=== PATIENT | female | born 1955 | race Caucasian/White ===

== ENCOUNTER 2019-03-14 07:56 | Emergency (ER) | payer OTHER, MEDICAID ==
[~2019-03-14] VITALS: Ht 154.9 cm; Wt 75.7 kg
[2019-03-14 08:12] VITALS: BP 154/94
--- NOTE | 2019-03-14 08:40 | NUR ---
64/F TO ED WITH C/O COUGH AND CONGESTION X 3 DAYS. PT REPORTS PAIN IN UPPER BACK UPON COUGHING. LUNG SOUNDS CLEAR BILATERALLY. NO DISTRESS NOTED. IN BED FOR MSE
[2019-03-14 09:02] VITALS: BP 154/94
--- NOTE | 2019-03-14 09:03 | NUR ---
Patient discharged with v/s stable. Written and verbal after care instructions given and explained. Patient alert, oriented and verbalized understanding of instructions. Ambulatory with steady gait. All questions addressed prior to discharge. ID band removed. Patient advised to follow up with PMD. Rx of CLARITIN, ROBITUSSIN given. Patient educated on indication of medication including possible reaction and side effects. Opportunity to ask questions provided and answered.
== END 2019-03-14 09:03 | disposition home or self-care (01) ==
LOC: MED 07:56
DX: J40 Bronchitis, not specified as acute or chronic (principal); R03.0 Elevated blood-pressure reading, without diagnosis of hypertension; M54.9 Dorsalgia, unspecified; E11.9 Type 2 diabetes mellitus without complications; H54.8 Legal blindness, as defined in USA; Z90.710 Acquired absence of both cervix and uterus
CPT/HCPCS: 71046; 99283